=== PATIENT | male | born 1965 | race Caucasian/White ===

== ENCOUNTER 2020-05-17 10:12 | Emergency (ER) | payer OTHER | END 2020-05-17 10:49 | disposition home or self-care (01) | LOC: JVIRT 10:12 | DX: Z03.818 Encounter for observation for suspected exposure to other biological agents ruled out (principal) | CPT/HCPCS: C9803; G2012-GT; U0003 ==

== ENCOUNTER 2022-04-10 16:13 | Emergency (ER) | payer OTHER ==
[2022-04-10] MEDS ORDERED: IBUPROFEN 400 MG TABLET (FP) PO ONE (16:25)
[2022-04-10 16:29] VITALS: BP 123/67; PULSE 68; RESP 18; TEMP 98.4; BMI 31.2
[2022-04-10] MEDS ORDERED: LIDOCAINE 5% TOPICAL PATCH TP ONE (18:09)
[2022-04-10] MEDS ORDERED: LIDOCAINE PATCH REMOVAL MC SCH (22:00)
== END 2022-04-10 18:18 | disposition home or self-care (01) ==
LOC: FER 16:13
DX: M25.551 Pain in right hip (principal)
CPT/HCPCS: 99283-25